=== PATIENT | female | born 1990 | race Caucasian/White ===

== ENCOUNTER 2018-09-02 21:22 | Emergency (ER) | payer BC, OTHER ==
[2018-09-02] MEDS ORDERED: HYDROcodone/ACETAMIN 5-325 MG* 1 TAB PO ONE (22:03)
[2018-09-02] MEDS ORDERED: Amoxicillin/Clavulanate TAB* 875 MG PO ONE (22:03)
[2018-09-02] MEDS ORDERED: Lidocaine 2% JELLY* 10 ML JELLY TOPICAL ONE (22:44)
[2018-09-02] MEDS ORDERED: Lidocaine 2% JELLY* 6 ML JELLY TOPICAL ONE (22:49)
[2018-09-03] MEDS ORDERED: HYDROcodone/ACETAMIN 5-325 MG* 1 TAB PO ONE ×2 (00:08→02:13)
[2018-09-03] MEDS ORDERED: Lidocaine/Epineph/Tetraca GEL* 3 ML GEL IN SYR TOPICAL ONE (00:25)
[2018-09-03] MEDS ORDERED: Benzoin COMPOUND swab* 1 applicator pak TOPICAL ONE (00:26)
[2018-09-03] MEDS ORDERED: Benzoin Compound STICK TOPICAL ONE (02:00)
[2018-09-03] MEDS ORDERED: Amoxicillin/Clavulanate TAB* 875 MG PO ONE (02:13)
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
[2018-09-03 03:01] VITALS: BP 128/89
--- NOTE | 2018-09-03 10:06 | PN ---
Progress Note - Progress Note Date of Service: 09/02/18 Note: Pt. seen in ED last night for multiple dog bite wounds. Xrays reviewed last night and showed defect in left distal radius thought to be a bone cyst. Pt. placed on augmentin. Dr. Field reviewed films today and is concerned for impaction fx. Case discussed with oncall orthopedics, Dr. Diaz who reviewed xrays and suspects defect is old and not new. He recommends continue antibx and outpt. f.u. and to return for signs of infection. I called and discussed findings with pt. today at 1020. She will f.u with pcp next week for wound check and return to ER for increased pain, redness, swelling, drainage, fever. Pt. understands and agrees with plan. Xray read per Dr. Field: IMPRESSION: #. Dog bite related impaction fracture radial margin distal metaphysis of the radius with overlying soft tissue swelling and subcutaneous emphysema.
== END 2018-09-03 10:06 | disposition home or self-care (01) ==
LOC: ED 21:22
DX: S51.812A Laceration without foreign body of left forearm, initial encounter (principal); S71.112A Laceration without foreign body, left thigh, initial encounter; W54.0XXA Bitten by dog, initial encounter; Y92.9 Unspecified place or not applicable; M25.532 Pain in left wrist; S41.111A Laceration without foreign body of right upper arm, initial encounter
CPT/HCPCS: 12002; 99283; A9270-GY